=== PATIENT | male | born 1955 | race Caucasian/White ===

== ENCOUNTER 2018-05-10 06:45 | Emergency (ER) | payer MEDICARE ==
[~2018-05-10] VITALS: Ht 172.7 cm; Wt 102.3 kg
[2018-05-10 06:50] VITALS: BP 146/92
--- NOTE | 2018-05-10 06:54 | NUR ---
AMBULATED TO ER BED 6
--- NOTE | 2018-05-10 06:55 | NUR ---
PT PRESENTED ER WITH C/O OF DIZZINESS/LIGHT HEADED THIS MORNING. PT IS A/O X 4. STEADY GAIT. PT DENIES N/V, BLURRED VISION. PT HAS NO PAIN AT THIS TIME 0/10. PT TAKES IBUPROFEN, TRAMADOL AND HYDROCODON DAILY FOR BACK PAIN. PT HAS HX OF SPINAL INJURY/PINCHED NERVE, HTN. SKIN IS PINK/WARM/DRY; VSS; PATIENT POSITIONED FOR COMFORT; HOB ELEVATED; BEDRAILS UP X2; BED DOWN. ER MD MADE AWARE OF PT STATUS.
--- NOTE | 2018-05-10 07:20 | NUR ---
Pt report given to CHAMP JAY. Transfer of care at this time.PT VITALS STABLE.
--- NOTE | 2018-05-10 07:25 | NUR ---
Received report from night filler RN. Pt. resting in bed. family at bedside. c/o dizziness. Denies n/v. Denies pain, blurred vision at this time. No acute respiratory distress noted. Will continue to monitor.
--- NOTE | 2018-05-10 07:47 | NUR ---
Dr. Rodriguez at bedside evaluating the pt.
--- NOTE | 2018-05-10 08:07 | NUR ---
Patient discharged with v/s stable. Written and verbal after care instructions given and explained. Patient alert, oriented and verbalized understanding of instructions. Ambulatory with steady gait. All questions addressed prior to discharge. ID band removed. Patient advised to track BP and follow up with PMD. Rx of Meclizine given. Patient educated on indication of medication including possible reaction and side effects. Opportunity to ask questions provided and answered.
[2018-05-10 08:09] VITALS: BP 150/85
== END 2018-05-10 08:07 | disposition home or self-care (01) ==
LOC: MED 06:45
DX: R42 Dizziness and giddiness (principal); I10 Essential (primary) hypertension
CPT/HCPCS: 81002; 99282; 99283

== ENCOUNTER 2020-11-06 09:24 | Emergency (ER) | payer OTHER, MEDICAID ==
[~2020-11-06] VITALS: Ht 172.7 cm; Wt 95.3 kg
[2020-11-06 09:30] VITALS: BP 144/76
--- NOTE | 2020-11-06 09:36 | NUR ---
PT AMBULATED TO BED 9 WITH STEADY GAIT
--- NOTE | 2020-11-06 09:48 | NUR ---
65 Y/O MALE C/O BILATERAL KNEE PAIN X 2 WEEKS. PT DENIES TRAUMA/INJURY. PT STATES HE BELIEVES ITS A SIDE EFFECT FROM THE MEDICATIONS HE HAS BEEN TAKING FOR YEARS AND HAS SINCE STOPPED TAKING IT. PT SPOKE WITH PCP YESTERDAY AND HAD XRAYS DONE BUT ARE WAITING FOR RESULTS. PT REQUESTING PAIN SHOT. PT RATES PAIN 10/10 THAT IS SHARP AND NONRADIATING. PT STATES HIS KNEES POP IN THE MORNING. PT TOOK 800MG IBUPROFEN WITH SOME RELIEF. PT DENIES N/V/SOB/FEVER. PT HAD BOTH COVID VACCINES. BILATERAL KNEES HAVE MODERATE SWELLING, NO OBVIOUS DEFORMITIES WITH FULL ROM. PT AMBULATES WITH STEADY GAIT. A/O X4 WITH EVEN AND UNLABORED RESPIRATIONS. PT SITTING IN CHAIR NEXT TO BED. PMH: CHRONIC BACK PAIN, HTN, HLD MED: ATORVASTATIN, AMLODIPINE NKDA
--- NOTE | 2020-11-06 09:50 | NUR ---
DR AJ AT BEDSIDE
[2020-11-06] MEDS ORDERED: KETOROLAC 60 MG/2 ML VIAL IM ONE (10:00)
[2020-11-06] MEDS ORDERED: ACET-8386 PO (10:30)
--- NOTE | 2020-11-06 10:40 | NUR ---
Patient discharged with v/s stable. Written and verbal after care instructions given and explained. Patient alert, oriented and verbalized understanding of instructions. Ambulatory with steady gait. All questions addressed prior to discharge. ID band removed. Patient advised to follow up with PMD. Rx of HYDROCODONE/ACETAMINOPHEN 5-325MG given. Patient educated on indication of medication including possible reaction and side effects. Opportunity to ask questions provided and answered.
[2020-11-06 10:44] VITALS: BP 144/76
== END 2020-11-06 10:40 | disposition home or self-care (01) ==
LOC: MED 09:24
DX: M25.561 Pain in right knee (principal); M25.562 Pain in left knee; I10 Essential (primary) hypertension; E78.00 Pure hypercholesterolemia, unspecified
CPT/HCPCS: 96372; 99283; J1885

== ENCOUNTER 2020-11-12 12:56 | Emergency (ER) | payer OTHER, MEDICAID ==
[~2020-11-12] VITALS: Ht 172.7 cm; Wt 95.3 kg
[~2020-11-12 12:56] MED LIST: ACET-8386 PO
--- NOTE | 2020-11-12 13:03 | NUR ---
Patient ambulated with steady gait to bed 1.
[2020-11-12 13:05] VITALS: BP 148/82
--- NOTE | 2020-11-12 13:07 | NUR ---
65 Y/O MALE C/O BILATERAL KNEE PAIN X3 WEEKS. PT SEEN HERE 6 DAYS AGO WITH SAME COMPLAINT. PT SAW PCP AND WAITING ON RESULTS FOR XRAYS. PT STATES HE THINKS ITS FROM THE COVID VACCINE. PMH: HTN, "CRUSHED SPINE" NKDA ALLERGIES: CAT
[2020-11-12] MEDS: KETOROLAC 60 MG/2 ML VIAL IM ONE (13:27)
--- NOTE | 2020-11-12 14:25 | NUR ---
Dr. Rosenbaum at the bedside evaluating patient.
[2020-11-12 14:49] VITALS: BP 148/82
--- NOTE | 2020-11-12 14:49 | NUR ---
Patient discharged with v/s stable. Written and verbal after care instructions given and explained. Patient alert, oriented and verbalized understanding of instructions. Ambulatory with steady gait. All questions addressed prior to discharge. ID band removed. Patient advised to follow up with PMD. Patient educated on indication of medication including possible reaction and side effects. Opportunity to ask questions provided and answered.
== END 2020-11-12 14:49 | disposition home or self-care (01) ==
LOC: MED 12:56
DX: M25.561 Pain in right knee (principal); M25.562 Pain in left knee; R11.0 Nausea; I10 Essential (primary) hypertension; Z79.899 Other long term (current) drug therapy; Z98.890 Other specified postprocedural states
CPT/HCPCS: 96372; 99283; J1885

== ENCOUNTER 2021-01-25 15:11 | Emergency (ER) | payer OTHER, MEDICAID ==
[~2021-01-25] VITALS: Ht 170.2 cm; Wt 101.2 kg
[2021-01-25 15:35] VITALS: BP 153/85
[2021-01-25] MEDS ORDERED: KETOROLAC 60 MG/2 ML VIAL IM ONE (15:40)
[2021-01-25] MEDS ORDERED: ONDANSETRON 4 MG ODT PO ONE (15:40)
[2021-01-25 15:52] VITALS: BP 153/85
[2021-01-25] MEDS ORDERED: ACET-8386 PO (16:18)
[2021-01-25] MEDS ORDERED: IBUP-2213 PO (16:18)
== END 2021-01-25 16:36 | disposition home or self-care (01) ==
LOC: MED 15:11
DX: M25.562 Pain in left knee (principal); I10 Essential (primary) hypertension; Z98.890 Other specified postprocedural states; Z79.899 Other long term (current) drug therapy
CPT/HCPCS: 96372; 99283; J1885; Q0162

== ENCOUNTER 2021-03-16 10:58 | Emergency (ER) | payer OTHER, MEDICAID ==
[~2021-03-16] VITALS: Ht 172.7 cm; Wt 95.3 kg
[~2021-03-16 10:58] MED LIST changes: +IBUP-2213 PO
[2021-03-16 11:03] VITALS: BP 179/96
--- NOTE | 2021-03-16 11:09 | NUR ---
PT SENT TO LOBBY
[2021-03-16] MEDS ORDERED: KETOROLAC 60 MG/2 ML VIAL IM ONE ×2 (11:15→11:17)
--- NOTE | 2021-03-16 11:22 | NUR ---
65/M PRESENTS TO ED WITH C/O LEFT KNEE PAIN X2 MONTHS. PATIENT DENIES INJURY OR TRAUMA, STATES PAIN BEGAN SPONTANEOUSLY AND HAS BEEN WORSENING. REPORTS TAKING 800 MG IBUPROFEN BUT STATES IT HAS NO LONGER BEEN PROVIDING RELIEF. PATIENT ABLE TO MOVE LEFT KNEE AND LEG APPROPRIATELY, STATES PAIN WORSENS WITH MOVEMENT. REPORTS 10/10 THROBBING PAIN, ABLE TO AMBULATE WITHOUT ASSISTANCE.
--- NOTE | 2021-03-16 11:35 | NUR ---
applied knee immobilizer to left knee without any issues
[2021-03-16 11:46] VITALS: BP 179/96
--- NOTE | 2021-03-16 11:47 | NUR ---
Patient discharged with v/s stable. Written and verbal after care instructions given and explained. Patient verbalized understanding. Ambulatory with steady gait. All questions addressed prior to discharge. Advised to follow up with PMD.
== END 2021-03-16 11:47 | disposition home or self-care (01) ==
LOC: MED 10:58
DX: M17.12 Unilateral primary osteoarthritis, left knee (principal); I10 Essential (primary) hypertension; Z79.899 Other long term (current) drug therapy
CPT/HCPCS: 29505; 96372; 99283; J1885

== ENCOUNTER 2021-03-19 04:10 | Emergency (ER) | payer OTHER, BC ==
[~2021-03-19] VITALS: Ht 172.7 cm; Wt 95.3 kg
[2021-03-19 04:20] VITALS: BP 150/93
--- NOTE | 2021-03-19 04:23 | NUR ---
to lobby a/w bed ambulatory
[2021-03-19] MEDS ORDERED: KETOROLAC 60 MG/2 ML VIAL IM ONE (04:50)
--- NOTE | 2021-03-19 05:00 | NUR ---
PT. IS A 65 Y/O MALE THAT CAME INTO ED WITH C/O OF LEFT KNEE PAIN. PT. STATES THAT THE PAIN IS LOCALIZED TO BACK OF KNEE. DENIES N/V/D; SKIN IS PINK/WARM/DRY; AAOX4 WITH EVEN AND STEADY GAIT; HR EVEN AND REGULAR; PT DENIES ANY FEVER, CP, SOB, OR COUGH AT THIS TIME; VSS; PATIENT POSITIONED FOR COMFORT; HOB ELEVATED; BEDRAILS UP X2; BED DOWN. ER MD MADE AWARE OF PT STATUS. PMH: DENIES ALLERGIES: CAT
[2021-03-19 05:21] VITALS: BP 150/93
== END 2021-03-19 05:21 | disposition home or self-care (01) ==
LOC: MED 04:10
DX: M17.12 Unilateral primary osteoarthritis, left knee (principal); I10 Essential (primary) hypertension; Z79.899 Other long term (current) drug therapy
CPT/HCPCS: 96372; 99283; J1885

== ENCOUNTER 2021-03-26 04:53 | Emergency (ER) | payer OTHER, BC ==
[~2021-03-26] VITALS: Ht 172.7 cm; Wt 95.3 kg
[2021-03-26 05:12] VITALS: BP 155/90
--- NOTE | 2021-03-26 05:15 | NUR ---
TO BED AMBULATORY
--- NOTE | 2021-03-26 05:27 | NUR ---
PATIENT PRESENTS TO ED WITH left knee pain. DENIES N/V/D; SKIN IS PINK/WARM/DRY; AAOX4 WITH EVEN AND STEADY GAIT; LUNGS CLEAR BL; HR EVEN AND REGULAR; PT DENIES ANY FEVER, CP, SOB, OR COUGH AT THIS TIME; PATIENT STATES PAIN OF 6/10 AT THIS TIME; VSS; PATIENT POSITIONED FOR COMFORT; HOB ELEVATED; BEDRAILS UP X2; BED DOWN. ER MD MADE AWARE OF PT STATUS.
[2021-03-26] MEDS ORDERED: methylPREDNISolone SS 40 MG in WATER STERILE 1 ML IM ONE (05:50)
[2021-03-26] MEDS ORDERED: KETOROLAC 30 MG/ML VIAL IM ONE (05:50)
[2021-03-26] MEDS ORDERED: WATER STERILE 10 ML MC ONE (05:55)
[2021-03-26] MEDS ORDERED: methylPREDNISolone SS 40 MG/ML VIAL ONE (05:56)
[2021-03-26 06:14] VITALS: BP 155/90
== END 2021-03-26 06:15 | disposition home or self-care (01) ==
LOC: MED 04:53
DX: M13.862 Other specified arthritis, left knee (principal); G89.29 Other chronic pain; Z79.899 Other long term (current) drug therapy
CPT/HCPCS: 96372; 99284; J1885; J2920

== ENCOUNTER 2022-05-29 10:50 | Emergency (ER) | payer OTHER, BC ==
[~2022-05-29] VITALS: Ht 172.7 cm; Wt 97.1 kg
[2022-05-29 11:16] VITALS: BP 132/103
--- NOTE | 2022-05-29 11:28 | NUR ---
BIB SELF FOR MED REFILL : HYDROCODON- ACETAMINOPHEN C/O LOWER BACK, RIGHT KNEE PAIN X TODAY. PMH: L KNEE SURGERY, ARTHRITIS
[2022-05-29] MEDS ORDERED: ACET-8386 PO (13:05)
[2022-05-29] MEDS ORDERED: IBUP-1842 PO (13:05)
== END 2022-05-29 13:10 | disposition home or self-care (01) ==
LOC: MED 10:50
DX: M17.11 Unilateral primary osteoarthritis, right knee (principal); G89.29 Other chronic pain; M54.50 Low back pain, unspecified; Z98.890 Other specified postprocedural states; Z79.1 Long term (current) use of non-steroidal anti-inflammatories (NSAID); Z79.891 Long term (current) use of opiate analgesic; Z91.048 Other nonmedicinal substance allergy status
CPT/HCPCS: 81002; 99283

== ENCOUNTER 2023-03-18 09:36 | Emergency (ER) | payer OTHER, BC ==
[~2023-03-18] VITALS: Ht 172.7 cm; Wt 95.3 kg
[~2023-03-18 09:36] MED LIST changes: -ACET-8386 PO; +ACET-8905 PO; +IBUP-1842 PO
[2023-03-18 10:04] VITALS: BP 114/86; PULSE 74; RESP 20; TEMP 98; O2SAT 97
[2023-03-18 10:54] LABS: BASOPHILS % (AUTO) 0.3 % (0.0-2.0); EOSINOPHILS # (AUTO) 0.1 K/uL (0-0.4); EOSINOPHILS % (AUTO) 0.7 % (0.0-4.0); HEMOGLOBIN 11.6 g/dL (12.0-18.0); LYMPHOCYTES # (AUTO) 1.8 K/uL (2.0-11.5); LYMPHOCYTES % (AUTO) 19.7 % (20.5-51.1); MEAN CORPUSCULAR HEMOGLOBIN 24 pg (27-31); MEAN CORPUSCULAR HGB CONC 32 g/dL (33-37); MEAN CORPUSCULAR VOLUME 74.6 fL (80-94); MONOCYTES # (AUTO) 0.6 K/uL (0.8-1.0); MONOCYTES % (AUTO) 6.1 % (1.7-9.3); NEUTROPHILS # (AUTO) 6.7 K/uL (1.8-7.7); NEUTROPHILS % (AUTO) 73.2 % (42.2-75.2); PLATELET COUNT (AUTO) 301 K/uL (140-450); RED BLOOD CELL COUNT(AUTO) 4.83 MIL/uL (4.20-6.10); RED CELL DISTRIBUTION WIDTH 15.1 % (11.6-13.7); WHITE BLOOD COUNT (AUTO) 9.2 K/uL (4.8-10.8)
[2023-03-18] MEDS ORDERED: KETOROLAC 15 MG/ML VIAL IM ONE (11:05)
[2023-03-18] MEDS ORDERED: GABAPENTIN 300 MG CAP PO ONE (11:05)
[2023-03-18 11:20] LABS: ALANINE AMINOTRANSFERASE 27 U/L (12-78); ALBUMIN 4.1 g/dL (3.4-5.0); ALKALINE PHOSPHATASE 90 U/L (50-136); ANION GAP 15.8 (8-16); ASPARTATE AMINOTRANSFERASE 4 U/L (15-37); CALCIUM 8.5 mg/dL (8.5-10.1); CARBON DIOXIDE 21.2 mmol/L (21-32); CHLORIDE 107 mmol/L (98-107); CREATINE KINASE, TOTAL 96 U/L (39-308); CREATININE 0.9 mg/dL (0.6-1.3); GFR ARICAN-AMERICAN 108 mL/min (>90); GFR NON ARICAN-AMERICAN 89 mL/min (>90); GLUCOSE 103 mg/dL (74-106); SODIUM SERUM 140 mmol/L (136-145); TOTAL BILIRUBIN 0.2 mg/dL (0.0-1.0); TOTAL PROTEIN, SERUM 7.6 g/dL (6.4-8.2); UREA NITROGEN, BLOOD 21 mg/dL (7-18)
[2023-03-18] MEDS ORDERED: GABA100C PO (12:14)
[2023-03-18] MEDS ORDERED: IBUP-2213 PO (12:14)
[2023-03-18 12:30] VITALS: BP 147/82; PULSE 57; RESP 18; O2SAT 95
== END 2023-03-18 12:30 | disposition home or self-care (01) ==
LOC: MED 09:36
DX: G62.9 Polyneuropathy, unspecified (principal); Z79.899 Other long term (current) drug therapy; Z98.890 Other specified postprocedural states
CPT/HCPCS: 36415; 70450; 71045; 80053; 82550; 82607; 82948; 84484; 85025; 96372; 99285; J1885